=== PATIENT | female | born 2000 | race Caucasian/White ===

== ENCOUNTER → 2022-09-21 | Outpatient (CLI) | payer OTHER ==
[~2022-09-21] MED LIST: LIDOCAINE 1% 10 ML MULTIDOSE VIAL IJ ONE
== END ==
LOC: EDSEX → US 09:06
PROVIDERS: ATTEND Family Medicine
DX: R22.42 Localized swelling, mass and lump, left lower limb (principal)
CPT/HCPCS: 20206; 76942; 88305

== ENCOUNTER 2025-02-09 20:55 | Emergency (ER) | payer OTHER ==
[~2025-02-09] VITALS: Ht 165.1 cm; Wt 88.0 kg
[~2025-02-09 20:55] MED LIST changes: +ENEMA READY TO133 ML PR; -LIDOCAINE 1% 10 ML MULTIDOSE VIAL IJ ONE
[2025-02-09 21:14] VITALS: PULSE 74; RESP 18; TEMP 99.6
[2025-02-09 23:26] VITALS: BP 119/65; PULSE 67; RESP 18; TEMP 98.3; O2SAT 98
== END 2025-02-09 23:15 | disposition home or self-care (01) ==
LOC: MERGE 21:12 → ER 21:12
DX: K59.00 Constipation, unspecified (principal); R10.30 Lower abdominal pain, unspecified
CPT/HCPCS: 99283

== ENCOUNTER 2025-02-13 23:46 | Emergency (ER) | payer OTHER ==
[~2025-02-13] VITALS: Ht 165.1 cm; Wt 95.3 kg
[2025-02-13 23:50] VITALS: PULSE 93; RESP 20; TEMP 98.5; O2SAT 99
[2025-02-14 01:01] LABS: BILIRUBIN,URINE NEGATIVE (NEGATIVE); CLARITY,URINE CLEAR (CLEAR); COLOR,URINE YELLOW (YELLOW); GLUCOSE, URINE NEGATIVE (NEGATIVE); KETONES,URINE NEGATIVE (NEGATIVE); LEUKOCYTE ESTERASE ,URINE NEGATIVE (NEGATIVE); NITRITE,URINE NEGATIVE (NEGATIVE); PH,URINE 6 (5 - 7); PROTEIN,URINE DIPSTICK NEGATIVE (NEGATIVE); URINE UROBILINOGEN 0.2 mg/dL (0.2 - 1)
[2025-02-14 01:07] LABS: PREGNANCY TEST, URINE NEGATIVE (NEGATIVE)
[2025-02-14] MEDS ORDERED: ENULOSE10 GM/15 M PO (01:56)
[2025-02-14 02:10] LABS: BACTERIA,URINE FEW /HPF; EPITHELIAL CELLS,URINE MODERATE /LPF; RBC,URINE 0-5 /HPF (0-5); WBC,URINE (MAN) 0-5 /HPF (0-5)
== END 2025-02-14 02:03 | disposition home or self-care (01) ==
LOC: ER 02-14 00:33
DX: K59.00 Constipation, unspecified (principal); K21.9 Gastro-esophageal reflux disease without esophagitis; F41.9 Anxiety disorder, unspecified
CPT/HCPCS: 74018; 81001; 81025; 99283

== ENCOUNTER 2025-06-02 19:46 | Emergency (ER) | payer OTHER ==
[~2025-06-02] VITALS: Ht 165.1 cm; Wt 95.3 kg
[~2025-06-02 19:46] MED LIST changes: +ENULOSE10 GM/15 M PO
[2025-06-02 21:23] LABS: LEUKOCYTE ESTERASE ,URINE 1+ (NEGATIVE); PROTEIN,URINE DIPSTICK NEGATIVE (NEGATIVE); URINE UROBILINOGEN 0.2 mg/dL (0.2 - 1)
[2025-06-02 21:25] LABS: PREGNANCY TEST, URINE NEGATIVE (NEGATIVE)
[2025-06-02 21:36] LABS: EPITHELIAL CELLS,URINE MODERATE /LPF
[2025-06-02 22:33] VITALS: PULSE 78; RESP 16; TEMP 98.1; O2SAT 100
== END 2025-06-02 22:38 | disposition home or self-care (01) ==
LOC: ER 21:08
DX: K59.09 Other constipation (principal); R10.9 Unspecified abdominal pain
CPT/HCPCS: 74018; 81001; 81025; 99283